=== PATIENT | male | born 1990 | race Caucasian/White ===

== ENCOUNTER → 2020-04-05 | Outpatient (CLI) | payer OTHER ==
[~2020-04-05] MED LIST: VISTARIL25 MG PO
== END ==
LOC: EMI 13:45
DX: Z00.00 Encounter for general adult medical examination without abnormal findings (principal); F41.9 Anxiety disorder, unspecified; H53.8 Other visual disturbances; R41.0 Disorientation, unspecified; R53.83 Other fatigue; R55 Syncope and collapse
CPT/HCPCS: 70551

== ENCOUNTER → 2021-11-02 | Outpatient (CLI) | payer OTHER | LOC: KOH-I 14:46 | DX: M54.50 Low back pain, unspecified (principal) | CPT/HCPCS: 72100 ==